=== PATIENT | male | born 1960 | race Caucasian/White ===

== ENCOUNTER → 2021-01-21 15:57 | Outpatient (CLI) | payer MEDICAID, SELFPAY ==
[2021-01-10 10:28] VITALS: BMI 22.3
--- NOTE | 2021-01-21 15:58 | MRI_ITS ---
STUDY: MRI RIGHT KNEE REASON FOR EXAM: Male, 60 years old. posterior pain x 1 year, ? of bone lesion, TECHNIQUE: Standardized fat and water weighted pulse sequences were obtained in all 3 orthogonal planes. COMPARISON: None. FINDINGS: Mixed radial and large horizontal tears are present in the posterior horn of the medial meniscus. Radial tearing and free edge of the body of the medial meniscus is also present which is subluxed out of the joint space. Normal anterior horn. There is diffuse, greater than 50% thickness articular cartilage loss of the medial femorotibial compartment. Moderate subcortical reactive signal is present in the posterior nonweightbearing aspect of the medial femoral condyle. Mild subchondral reactive signal is present in the medial tibial plateau. 2.65 cm benign cortical fibrous lesion is present in the posterior aspect of the distal femoral metadiaphyseal region. Normal medial collateral ligamentous complex (MCL). Normal distal semimembranosus, gracilis and semitendinosus tendons. Normal lateral meniscus. Normal hyaline cartilage of the lateral femorotibial compartment. Normal lateral femoral condyle and tibial plateau. Normal proximal tibiofibular articulation. Normal lateral collateral (fibular) ligament. Normal popliteus tendon. Normal biceps femoris tendon. Normal anterior cruciate ligament (ACL). Normal posterior cruciate ligament (PCL). Normal congruent patellofemoral articulation. There is diffuse, greater than 50% thickness articular cartilage loss of the patellofemoral compartment. Normal medial and lateral patellar retinaculum. Normal quadriceps tendon. Normal patellar tendon. Normal Hoffa''s fat pad. A small joint effusion is present as well as a 7.38 cm Anaya''s cyst cyst. The soft tissues are unremarkable. The otherwise visualized osseous structures are unremarkable. MRI/Lower Ext Joint Only (Routine) IMPRESSION: 1. Mixed radial and large horizontal tears are present in the posterior horn of the medial meniscus. Radial tearing and free edge of the body of the medial meniscus is also present which is subluxed out of the joint space. Electronically Signed: Ok Torrez MD at 20:41 EST , Service support ,
[2021-01-21 16:25] LABS: CREATININE FINGERSTICK 1.5 mg/dL (0.70-1.30)
== END ==
PROVIDERS: PCP Family Medicine; Referring Provider Orthopaedic Surgery; Visit Provider Orthopaedic Surgery
DX: S83.241A Other tear of medial meniscus, current injury, right knee, initial encounter (principal); M71.21 Synovial cyst of popliteal space [Baker], right knee; M85.651 Other cyst of bone, right thigh; X58.XXXA Exposure to other specified factors, initial encounter; Y93.9 Activity, unspecified; Y92.9 Unspecified place or not applicable; Y99.9 Unspecified external cause status
CPT/HCPCS: 73721